=== PATIENT | male | born 1985 ===

== ENCOUNTER 2025-05-08 05:56 | Day surgery (SDC) | payer OTHER ==
[2025-05-01 09:22] VITALS: BP 134/90
[2025-05-01 09:41] LABS: PH,URINE 5.5 (5.0-8.0); URINE APPEARANCE Clear; URINE BILIRRUBIN Negative (NEGATIVE); URINE BLOOD Negative; URINE COLOR Yellow; URINE GLUCOSE Negative (NEGATIVE); URINE KETONE Negative (NEGATIVE); URINE LEUKOCYTE Negative; URINE NITRATE Negative; URINE PROTEIN Negative (NEGATIVE); URINE UROBILINOGEN 0.2 E.U./dl
[2025-05-01 09:45] LABS: URINE BACTERIA 7.3 uL (0.0-1933); URINE WBC 3.3 uL (0.0-23.2)
[2025-05-01 09:46] LABS: URINE EPITHELIAL CELLS 0.4 uL (0.0-38.8); URINE RBC 0.4 uL (0.0-20.8)
[2025-05-01 09:51] LABS: BASO % 0.7 % (0.1-1.2); EOS # 0.24 (0.04-0.54); HEMOGLOBIN 15.3 g/dL (13.7-17.5); LYMPH # 1.68 (1.18-3.74); MEAN CORPUSCULAR HEMOGLOBIN 26.9 pg (25.6-32.2); MONO # 0.41 (0.24-0.82); MONO % 6.8 % (4.7-12.5); NEUT # 3.62 (1.56-6.13); NEUT % 60.2 % (34.0-71.1); PLATELET COUNT 315 K/uL (163-369); RED BLOOD COUNT 5.69 M/uL (4.63-6.08); RED CELL DISTRIBUTION WIDTH 12.3 % (11.6-14.4)
[2025-05-01 10:18] LABS: PARTIAL THROMBOPLASTIN TIME 31.1 SECONDS (22.0-34.0); PROTHROMBIN TIME 10.9 SECONDS (9.0-11.5)
[2025-05-01 10:41] LABS: ALBUMIN 4.4 gm/dL (3.4-5.0); CALCIUM 10.2 mg/dL (8.5-10.1); CREATININE SERUM 1.08 mg/dL (0.70-1.30); GFR 74.98; PHOSPHOROUS 3.4 mg/dL (2.5-4.9); POTASSIUM 4.78 mEq/L (3.5-5.1)
[~2025-05-08] VITALS: Ht 170.2 cm; Wt 74.8 kg
[~2025-05-08 05:56] MED LIST: FENOFIBRIC ACID; ROSUVASTATIN CALCIUM; TEMAZEPAM30 MG PO
[2025-05-08] MEDS ORDERED: CEFAZOLIN SODIUM 1,000 MG VIAL ONE (07:30)
[2025-05-08] MEDS ORDERED: OMEPRAZOLE MAGN20 MG PO (10:04)
[2025-05-08] MEDS ORDERED: OXYMETAZOLINE HCL 15 ML NASAL DROPS NASAL ONE (10:15)
[2025-05-08] MEDS ORDERED: MORPHINE SULFATE 4 MG/ML VIAL IV ONE (11:20)
[2025-05-08] MEDS ORDERED: LORazepam 2 MG/ML VIAL IV STA (11:36)
== END 2025-05-08 13:55 | disposition home or self-care (01) ==
LOC: CIR.AMB 05:56
PROVIDERS: ATTEND Otolaryngology Otology & Neurotology
DX: J38.1 Polyp of vocal cord and larynx (principal); R49.0 Dysphonia; Z91.013 Allergy to seafood